=== PATIENT | female | born 1975 | race Caucasian/White ===

== ENCOUNTER 2023-11-22 14:14 | Emergency (ER) | payer SELFPAY ==
[2023-11-22 14:22] VITALS: BP 121/66
--- NOTE | 2023-11-22 14:22 | ED.PDOC.TRB ---
ED Provider Triage
-
Patient seen by provider in Triage?: Seen in Triage
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
== END 2023-11-22 15:18 | disposition home or self-care (01) ==
LOC: EMR 14:14
PROVIDERS: EMERGENCY PHYSICIAN Emergency Medicine; FAMILY PHYSICIAN Internal Medicine
DX: S06.0X0A Concussion without loss of consciousness, initial encounter (principal); S40.012A Contusion of left shoulder, initial encounter; V49.60XA Unspecified car occupant injured in collision with unspecified motor vehicles in traffic accident, initial encounter; Y92.410 Unspecified street and highway as the place of occurrence of the external cause; J45.909 Unspecified asthma, uncomplicated
CPT/HCPCS: 99283; 73030